=== PATIENT | female | born 1950 | race American Indian/Alaskan Native ===

== ENCOUNTER 2017-06-01 02:31 | Emergency (ER) | payer MEDICARE, OTHER ==
[2017-06-01 04:25] LABS: Hematocrit 38.3 % (30.3-42.9); Hemoglobin 12.9 gm/dl (10.1-14.3); Mean Corpuscular HGB Conc 34 % (30-34); Mean Corpuscular Hemoglobin 31 pg (28-32); Mean Corpuscular Volume 92 fl (79-97); Platelet Count 239 K/mm3 (140-440); Red Blood Count 4.18 M/mm3 (3.65-5.03); Red Cell Distribution Width 13.6 % (13.2-15.2); White Blood Count 6.7 K/mm3 (4.5-11.0)
[2017-06-01 04:34] LABS: Anion Gap 17 mmol/L; BUN/Creatinine Ratio 16; Blood Urea Nitrogen 11 mg/dL (7-17); Calcium 9.5 mg/dL (8.4-10.2); Carbon Dioxide 26 mmol/L (22-30); Chloride 101.2 mmol/L (98-107); Glucose 137 mg/dL (65-100); Potassium 4.9 mmol/L (3.6-5.0); Sodium 139 mmol/L (137-145)
--- NOTE | 2017-06-01 04:35 | XRay Report ---
FINAL REPORT EXAM: XR CHEST ROUTINE 2V HISTORY: Cough. TECHNIQUE: Frontal and lateral radiographs of the chest were obtained. No prior studies are available for comparison. FINDINGS: The cardiac silhouette and mediastinum are within normal limits. There is minimal right apical pleural thickening. The lungs are clear bilaterally, without focal infiltrate or effusion. There is no pneumothorax. No significant osseous abnormalities are identified. IMPRESSION: No active disease seen in the chest.
[2017-06-01 06:03] LABS: Bilirubin,Urine NEG (Negative); Blood,Urine NEG (Negative); Ketones,Urine NEG (Negative); Leukocyte Esterase,Urine NEG (Negative); Mucus,Urine FEW /HPF; Nitrite,Urine NEG (Negative); Protein,Urine <15 mg/dL mg/dL (Negative); Urobilinogen,Urine < 2.0 mg/dL (<2.0); WBC,Urine < 1.0 /HPF (0.0-6.0)
[2017-06-01 06:21] LABS: RBC,Urine < 1.0 /HPF (0.0-6.0)
[2017-06-01] MEDS ORDERED: ANTIVERT PO ONE (07:10)
[2017-06-01] MEDS ORDERED: TYLENOL PO ONE (07:10)
[2017-06-01] MEDS ORDERED: MOTRIN PO ONE (07:10)
--- NOTE | 2017-06-01 07:14 | Emergency Department Report ---
ED General Adult HPI - General Chief complaint: Dizziness Stated complaint: DIZZINESS, COUGH, CONGESTION Time Seen by Provider: 06/01/17 06:58 Source: patient Mode of arrival: Ambulatory Limitations: No Limitations - History of Present Illness Initial comments: Primary care Dr.: Dr. Jimenes This is a 66-year-old female who was previously unknown to this provider. Presents to the ER with complaint of nasal congestion, cough, mucus production, nasal discharge. This is been going on for a few days. It is constant. He does not have exacerbating or relieving factors. Also describes sensation of intermittent room spinning. -: Gradual Location: head, face, mouth Consistency: intermittent Improves with: rest Worsens with: movement Associated Symptoms: cough, headaches, loss of appetite, malaise, weakness. denies: chest pain, diaphoresis, fever/chills, nausea/vomiting, rash, seizure, shortness of breath, syncope - Related Data Home Medications Medication Instructions Recorded Confirmed Last Taken Atenolol [Tenormin] 12.5 mg PO DAILY 11/27/13 11/27/13 11/26/13 17:00 Sertraline [Zoloft] 25 mg PO QDAY 11/27/13 11/27/13 11/26/13 12:00 busPIRone [Buspar] 10 mg PO TID 11/27/13 11/27/13 11/26/13 12:00 Previous Rx's Medication Instructions Recorded Last Taken Type Acetaminophen [Tylenol Arthritis] 650 mg PO Q6HR PRN #30 tablet.er 06/01/17 Unknown Rx Albuterol Sulfate [Proair 90 mcg IH Q4HR PRN #2 aer.pow.ba 06/01/17 Unknown Rx Respiclick] Benzonatate [Tessalon Perles] 100 mg PO Q8HR PRN #30 capsule 06/01/17 Unknown Rx Fluticasone [Flonase] 1 spray NS QDAY #1 bottle 06/01/17 Unknown Rx Ibuprofen [Motrin] 600 mg PO Q8H PRN #30 tablet 06/01/17 Unknown Rx Meclizine [Antivert] 25 mg PO TID PRN #20 tablet 06/01/17 Unknown Rx Allergies Allergy/AdvReac Type Severity Reaction Status Date / Time Penicillins Allergy Hives Verified 11/27/13 01:03 Sulfa (Sulfonamide Allergy Itching Verified 11/27/13 01:03 Antibiotics) ED Review of Systems ROS: Stated complaint: DIZZINESS, COUGH, CONGESTION Other details as noted in HPI Constitutional: malaise. denies: fever Eyes: denies: vision change ENT: ear pain, congestion Respiratory: cough Cardiovascular: denies: syncope Gastrointestinal: denies: vomiting Genitourinary: denies: dysuria Musculoskeletal: arthralgia, myalgia Skin: denies: lesions Neurological: weakness Psychiatric: anxiety ED Past Medical Hx - Past Medical History Hx Hypertension: Yes Hx GERD: Yes Hx Psychiatric Treatment: Yes (anxiety/depression) Hx Asthma: Yes Additional medical history: mvp fibromyalgia - Surgical History Past Surgical History?: No - Social History Smoking Status: Never Smoker Substance Use Type: None - Medications Home Medications: Home Medications Medication Instructions Recorded Confirmed Last Taken Type Atenolol [Tenormin] 12.5 mg PO DAILY 11/27/13 11/27/13 11/26/13 17:00 History Sertraline [Zoloft] 25 mg PO QDAY 11/27/13 11/27/13 11/26/13 12:00 History busPIRone [Buspar] 10 mg PO TID 11/27/13 11/27/13 11/26/13 12:00 History Acetaminophen [Tylenol Arthritis] 650 mg PO Q6HR PRN #30 tablet.er 06/01/17 Unknown Rx Albuterol Sulfate [Proair 90 mcg IH Q4HR PRN #2 aer.pow.ba 06/01/17 Unknown Rx Respiclick] Benzonatate [Tessalon Perles] 100 mg PO Q8HR PRN #30 capsule 06/01/17 Unknown Rx Fluticasone [Flonase] 1 spray NS QDAY #1 bottle 06/01/17 Unknown Rx Ibuprofen [Motrin] 600 mg PO Q8H PRN #30 tablet 06/01/17 Unknown Rx Meclizine [Antivert] 25 mg PO TID PRN #20 tablet 06/01/17 Unknown Rx ED Physical Exam - General Limitations: No Limitations General appearance: alert, in no apparent distress - Head Head exam: Present: atraumatic, normocephalic - Eye Eye exam: Present: normal appearance, PERRL, EOMI, other (visual acuity intact to finger counting, color perception, reading at a close distance). Absent: nystagmus - ENT ENT exam: Present: normal exam, normal orophraynx, mucous membranes moist, TM's normal bilaterally, normal external ear exam, other (there is no mastoid tenderness. No vesicles noted.) - Neck Neck exam: Present: normal inspection, full ROM. Absent: tenderness, meningismus - Respiratory Respiratory exam: Present: normal lung sounds bilaterally. Absent: respiratory distress, chest wall tenderness - Cardiovascular Cardiovascular Exam: Present: regular rate, normal rhythm, normal heart sounds. Absent: systolic murmur, diastolic murmur, rubs, gallop - GI/Abdominal GI/Abdominal exam: Present: soft, normal bowel sounds. Absent: distended, tenderness, guarding, rebound, rigid, pulsatile mass - Extremities Exam Extremities exam: Present: normal inspection, full ROM, normal capillary refill. Absent: pedal edema, joint swelling, calf tenderness - Back Exam Back exam: Present: normal inspection, full ROM. Absent: tenderness, CVA tenderness (R), paraspinal tenderness, vertebral tenderness - Neurological Exam Neurological exam: Present: alert, oriented X3, CN II-XII intact, normal gait ( normal tandem gait, normal gait, negative Romberg, normal [id number], negative pronator drift, no past pointing), other (Extraocular movements intact. Tongue midline. No facial droop. Facial sensation intact to light touch in the V1, V2, V3 distribution bilaterally. 5 and 5 strength in 4 extremities.. Sensation is intact to light touch in 4 extremities.). Absent: motor sensory deficit - Psychiatric Psychiatric exam: Present: anxious - Skin Skin exam: Present: warm, dry, intact, normal color. Absent: rash ED Course Vital Signs 06/01/17 06/01/17 03:22 07:42 Temperature 98.7 F 97.8 F Pulse Rate 81 73 Respiratory 18 16 Rate Blood Pressure 160/82 Blood Pressure 131/70 [Left] O2 Sat by Pulse 99 98 Oximetry ED Medical Decision Making - Lab Data Result diagrams: 06/01/17 03:39 06/01/17 03:39 Vital Signs 06/01/17 03:22 Temperature 98.7 F Pulse Rate 81 Respiratory 18 Rate Blood Pressure 160/82 O2 Sat by Pulse 99 Oximetry Lab Results 06/01/17 06/01/17 06/01/17 Range/Units 03:39 03:39 Unknown WBC 6.7 (4.5-11.0) K/mm3 RBC 4.18 (3.65-5.03) M/mm3 Hgb 12.9 (10.1-14.3) gm/dl Hct 38.3 (30.3-42.9) % MCV 92 (79-97) fl MCH 31 (28-32) pg MCHC 34 (30-34) % RDW 13.6 (13.2-15.2) % Plt Count 239 (140-440) K/mm3 Lymph % (Auto) Avionics Mechanic Powell % (Auto) Avionics Mechanic Eos % (Auto) Avionics Mechanic Baso % (Auto) Avionics Mechanic Lymph # Avionics Mechanic Powell # Avionics Mechanic Eos # Avionics Mechanic Baso # Avionics Mechanic Seg Neutrophils % Avionics Mechanic Seg Neutrophils # Avionics Mechanic Sodium 139 (137-145) mmol/L Potassium 4.9 (3.6-5.0) mmol/L Chloride 101.2 (98-107) mmol/L Carbon Dioxide 26 (22-30) mmol/L Anion Gap 17 mmol/L BUN 11 (7-17) mg/dL Creatinine 0.7 (0.7-1.2) mg/dL Estimated GFR > 60 ml/min BUN/Creatinine Ratio 16 % Glucose 137 H (65-100) mg/dL Calcium 9.5 (8.4-10.2) mg/dL Urine Color Straw (Yellow) Urine Turbidity Clear (Clear) Urine pH 8.0 H (5.0-7.0) Ur Specific [place] 1.006 (1.003-1.030) Urine Protein <15 mg/dl (Negative) mg/dL Urine Glucose (UA) Neg (Negative) mg/dL Urine Ketones Neg (Negative) mg/dL Urine Blood Neg (Negative) Urine Nitrite Neg (Negative) Urine Bilirubin Neg (Negative) Urine Urobilinogen < 2.0 (<2.0) mg/dL Ur Leukocyte Esterase Neg (Negative) Urine WBC (Auto) < 1.0 (0.0-6.0) /HPF Urine RBC (Auto) < 1.0 (0.0-6.0) /HPF Urine Mucus Few /HPF - EKG Data -: EKG Interpreted by Mo EKG shows normal: sinus rhythm Rate: normal - EKG Data When compared to previous EKG there are: previous EKG unavailable 06/01/17 07:11 Sinus, 67 beats per minute, normal axis, normal intervals, unremarkable EKG, no prior for comparison, not morphologically consistent with STEMI - Radiology Data Radiology results: report reviewed, image reviewed X-ray of the chest, interpreted by myself and radiology as negative for acute findings/disease. - Medical Decision Making Differential diagnosis, including but not limited to: Upper respiratory infection, labyrinthitis, peripheral vertigo, viral syndrome Assessment and plan: 66-year-old female with 2-1/2-3 weeks of cough, mucus production, resolved ear discomfort, with intermittent sensation of room spinning. She is afebrile, with reassuring vital signs, has a normal neurologic examination, walks with a steady gait, has no posterior circulation physical exam findings or cerebellar findings, and upon my initial physical exam is sleeping very comfortably in a stretcher. Patient is reassured, she is given medication for symptoms, and she can follow-up with her outpatient primary care doctor, symptoms have been going on for a few weeks, there does not appear to be an emergent condition at this time. Influenza swab is negative , symptoms present for greater than 72 hours, does not appear to be historically consistent with influenza-like illness. No indication for Tamiflu at this time. Critical care attestation.: If time is entered above; I have spent that time in minutes in the direct care of this critically ill patient, excluding procedure time. ED Disposition Clinical Impression: Viral syndrome Disposition: DC-01 TO HOME OR SELFCARE Is pt being admited?: No Does the pt Need Aspirin: No Condition: Stable Instructions: Labyrinthitis (ED) Additional Instructions: As we discussed, symptoms likely coming from viral syndrome/labyrinthitis. This typically not dangerous or life-threatening, continue current outpatient medications, with the exception of a steroid Dosepak. Steroids may be discontinued. Symptoms may be expected to last anywhere from 4-6 weeks in total. Follow up with the primary care doctor or welding machine assembler within the next 10-[address] Sea Vasquez is a local otolaryngology specialist. Take the prescribed medications as needed/directed. Return to the ER right away with fevers, chills, chest pain, shortness of breath, confusion, unsteady gait, inability to speak, inability to breathe, new, worsening or different symptoms or confusion. Prescriptions: Acetaminophen [Tylenol Arthritis] 650 mg PO Q6HR PRN #30 tablet.er PRN Reason: Pain Albuterol Sulfate [Proair Respiclick] 90 mcg IH Q4HR PRN #2 aer.pow.ba PRN Reason: Wheezing Benzonatate [Tessalon Perles] 100 mg PO Q8HR PRN #30 capsule PRN Reason: Cough Fluticasone [Flonase] 1 spray NS QDAY #1 bottle Ibuprofen [Motrin] 600 mg PO Q8H PRN #30 tablet PRN Reason: Pain Meclizine [Antivert] 25 mg PO TID PRN #20 tablet PRN Reason: Vertigo Referrals: PRIMARY CARE, [Primary Care Provider] - 3-5 Days THERESA VALENTINO MD [Staff Physician] - 3-5 Days JOSELINE JIMENES MD [Referring] - 3-5 Days
[2017-06-01 07:43] VITALS: BP 131/70
== END 2017-06-01 07:43 | disposition home or self-care (01) ==
LOC: ED 02:31
DX: B34.9 Viral infection, unspecified (principal); I10 Essential (primary) hypertension; K21.9 Gastro-esophageal reflux disease without esophagitis; J45.909 Unspecified asthma, uncomplicated
CPT/HCPCS: 36415; 71020; 80048; 81001; 85025; 87400; 93005; 93010

== ENCOUNTER 2017-09-06 23:24 | Emergency (ER) | payer MEDICARE, OTHER ==
--- NOTE | 2017-09-07 06:31 | Emergency Department Report ---
ED Rash HPI - HPI Chief Complaint: Skin Rash Stated Complaint: BUG BITE Time Seen by Provider: 09/07/17 06:09 Duration: Today Location: Upper Extremities (right distal forearm) Rash Symptoms: Yes Itching, No Facial Swelling, No Tongue/Oral Swelling, No Breathing Difficulties, No Choking Sensation, No Wheezing/Dyspnea, No Peeling, No Blistering, No Fever, No Lightheaded, No Malaise, No Myalgias Severity: mild Other History: 67-year-old female past medical history fibromyalgia, hypertension, asthma, GERD presents with complaint of possible bug bites to right distal inner forearm. Patient states she fell asleep on her couch at home and woke up with itchy slightly bumpy rash on right distal forearm. States she has had an ant problem in her home which she recently contracted an philosophy instructor for. States that this occurred within the last 24 hours. Rash confined to right inner forearm ED Review of Systems ROS: Stated complaint: BUG BITE Other details as noted in HPI Constitutional: denies: chills, fever Eyes: denies: eye pain, eye discharge, vision change ENT: denies: ear pain, throat pain Respiratory: denies: cough, shortness of breath, wheezing Cardiovascular: denies: chest pain, palpitations Endocrine: no symptoms reported Gastrointestinal: denies: abdominal pain, nausea, diarrhea Genitourinary: denies: urgency, dysuria, discharge Musculoskeletal: denies: back pain, joint swelling, arthralgia Skin: rash. denies: lesions Neurological: denies: headache, weakness, paresthesias Psychiatric: denies: anxiety, depression Hematological/Lymphatic: denies: easy bleeding, easy bruising ED Past Medical Hx - Past Medical History Previous Medical History?: Yes Hx Hypertension: Yes Hx GERD: Yes Hx Psychiatric Treatment: Yes (anxiety/depression) Hx Asthma: Yes Additional medical history: mvp fibromyalgia - Surgical History Past Surgical History?: No - Social History Smoking Status: Never Smoker Substance Use Type: None - Medications Home Medications: Home Medications Medication Instructions Recorded Confirmed Last Taken Type Atenolol [Tenormin] 12.5 mg PO DAILY 11/27/13 11/27/13 11/26/13 17:00 History Sertraline [Zoloft] 25 mg PO QDAY 11/27/13 11/27/13 11/26/13 12:00 History busPIRone [Buspar] 10 mg PO TID 11/27/13 11/27/13 11/26/13 12:00 History Acetaminophen [Tylenol Arthritis] 650 mg PO Q6HR PRN #30 tablet.er 06/01/17 Unknown Rx Albuterol Sulfate [Proair 90 mcg IH Q4HR PRN #2 aer.pow.ba 06/01/17 Unknown Rx Respiclick] Benzonatate [Tessalon Perles] 100 mg PO Q8HR PRN #30 capsule 06/01/17 Unknown Rx Fluticasone [Flonase] 1 spray NS QDAY #1 bottle 06/01/17 Unknown Rx Ibuprofen [Motrin] 600 mg PO Q8H PRN #30 tablet 06/01/17 Unknown Rx Meclizine [Antivert] 25 mg PO TID PRN #20 tablet 06/01/17 Unknown Rx Clindamycin [Clindamycin CAP] 300 mg PO Q6H #20 capsule 09/07/17 Unknown Rx Mupirocin [Bactroban 2% CREAM] 1 applicatio TP TID #1 cream 09/07/17 Unknown Rx Permethrin 5% [Acticin 5% CREAM] 1 applicatio TP ONCE #1 tube 09/07/17 Unknown Rx Rash Exam - Exam General: Vital signs noted. No distress. Alert and acting appropriately. HEENT: No Periorbital Edema, No Conjuctival Injection, No Chemosis, No Perioral Edema, No Tongue Edema, No Uvular Edema, No Compromised Airway, No Drooling Lungs: Yes Good Air Exchange (Normal Breath Sounds), No Wheezes, No Ronchi, No Stridor, No Cough, No Labored Respirations, No Retractions, No Use of Accessory Muscles, No Other Abnormal Lung Sounds Heart: Yes Regular, No Murmur Skin: Yes Maculopapular Rash, No Urticarial Rash, No Morbilliform rash, No Bulla (e), No Excoriations, No Weeping, No Tenderness, No Erythema, No Edema, No Encrustations, No Other Other: Positive: Abdomen Normal, Neurologic Normal, Musculoskeletal Normal ED Course Vital Signs 09/07/17 01:30 Temperature 98.3 F Pulse Rate 71 Respiratory 18 Rate Blood Pressure 134/58 O2 Sat by Pulse 100 Oximetry ED Medical Decision Making - Medical Decision Making A/P: Bug bite right distal forearm 1- topical Bactroban, topical permethrin 2- short course Keflex 3- advised patient to return to the ED if rash worsens Critical care attestation.: If time is entered above; I have spent that time in minutes in the direct care of this critically ill patient, excluding procedure time. ED Disposition Clinical Impression: Bug bite Qualifiers: Encounter type: initial encounter Qualified Code(s): W57.XXXA - Bitten or stung by nonvenomous insect and other nonvenomous arthropods, initial encounter Disposition: DC- TO HOME OR SELFCARE Is pt being admited?: No Does the pt Need Aspirin: No Condition: Stable Instructions: Scabies (ED), Insect Bite or Sting (ED) Prescriptions: Clindamycin [Clindamycin CAP] 300 mg PO Q6H #20 capsule Mupirocin [Bactroban 2% CREAM] 1 applicatio TP TID #1 cream Permethrin 5% [Acticin 5% CREAM] 1 applicatio TP ONCE #1 tube Referrals: ANAM TURCIOS MD [Primary Care Provider] - 3-5 Days Time of Disposition: 06:32
[2017-09-07 06:40] VITALS: BP 128/62
== END 2017-09-07 06:39 | disposition home or self-care (01) ==
LOC: ED 23:24
DX: S50.861A Insect bite (nonvenomous) of right forearm, initial encounter (principal); I10 Essential (primary) hypertension; K21.9 Gastro-esophageal reflux disease without esophagitis; W57.XXXA Bitten or stung by nonvenomous insect and other nonvenomous arthropods, initial encounter; Y93.89 Activity, other specified; Y92.89 Other specified places as the place of occurrence of the external cause; Y99.8 Other external cause status
CPT/HCPCS: 99282